=== PATIENT | male | born 1970 | race Caucasian/White ===

== ENCOUNTER 2022-05-19 08:06 | Outpatient (CLI) | payer OTHER, SELFPAY ==
--- NOTE | 2022-06-03 19:02 | WPDHOMESLEEP ---
Sleep Study - Home Unattended Date of Study: 05/19/22 Ordering Provider: Kranthi Golden PA-C Interpreting Provider: Reena Stovall, DO Home Sleep Study Type: Watch PAT Height: 1.83 m Weight: 90.718 kg Body Mass Index: 27.1 Neck Circumference (inches): 15.75 [place]: 4 Reason for Sleep Study Snoring, daytime hypersomnia Sleep History The patient is a 52-year-old male with hypertrophic cardiomyopathy, hyperlipidemia, GERD and history of tobacco use that had a sleep study ordered by his primary care for evaluation of sleep apnea. The patient frequently awakens from sleep short of breath. He denies awakening at night with heartburn, belching or cough. He constantly snores loud enough others complain. He occasionally has trouble sleeping when he has a cold. He frequently wakes up gasping for air throughout the night. He denies having breathing problems at night observed by himself or others. He denies sweating excessively at night. He rarely has heart palpitations or irregular heartbeats during the night. He occasionally falls asleep during the day but never while driving. He denies sleep paralysis, cataplexy and hypnagogic / hypnopompic hallucinations. He rarely has trouble at school or work due to sleepiness. He denies feeling afraid of going to sleep. He denies having nightmares. He frequently remembers his dreams. He rarely has thoughts racing through his mind. He denies feeling sad or depressed. He rarely has anxiety. He denies having muscular tension. He occasionally notices parts of his body jerk. He occasionally kicks during the night. He denies having crawling and aching feelings in his legs and denies having leg pain during the night. He rarely grinds his teeth during sleep but never awakens with morning jaw pain. He denies being bothered by pain during the day and denies being awakened by pain during the night. He denies waking up feeling stiff in the morning. He denies waking up with sore achy muscles. He denies waking up with pain in the neck, spine or other joints. He goes to bed at 10:30 p.m. on weekdays and at 11:30 p.m. on the weekends. He is able to fall asleep immediately. he wakes up 2-3 times throughout the night to urinate. He is able to fall back asleep within a few minutes. He wakes up at 6:30 a.m. on weekdays and 8:00 a.m. on the weekends. He typically gets 8 hours of sleep per night. He will stay in bed for few minutes after waking up in the morning. He currently lives with his and children. He does not consume any caffeinated beverages within 2 hours of bedtime. He does not engage in physical exercise before bedtime. he will watch television before falling asleep. He will take naps in the afternoon or the evening and they are refreshing. He drinks 16 oz of caffeinated beverage per day. He is a former smoker. [facility] Past Medical History Medical History (Updated 06/03/22 @ 19:11 by Reena Stovall DO) Other herpesviral infection Prostatitis, unspecified Family History Family History Mother Hypertension Cerebrovascular accident Family history of malignant neoplasm Colon polyp Father Family history of cardiovascular disease Colon polyp Other Malignant neoplasm of prostate Social History Social History Smoking status: Former smoker Alcohol intake: current Lack of Transportation: No Lack of Food: Never True Current Housing: I Have Housing Concerned About Future Housing: No Difficulty Paying Gas/Electric Bills: No Difficulty Paying for Meds: No Currently Unemployed: No Education: Decline to Answer Difficulty w/ Childcare or Family Care: No Medications Home Medications Medication Instructions Recorded Confirmed Type rosuvastatin 10 mg tablet 10 mg PO 04/25/22 04/25/22 History Sleep Procedure The sleep study
[2022-06-03 19:09] VITALS: BMI 27.1
== END 2022-05-20 10:07 | disposition home or self-care (01) ==
LOC: ANHCSM 08:07
PROVIDERS: PCP Family Medicine; Visit Provider Physician Assistant
DX: G47.30 Sleep apnea, unspecified (principal); G47.33 Obstructive sleep apnea (adult) (pediatric)
CPT/HCPCS: 95800

== ENCOUNTER 2023-01-06 03:45 | Day surgery (SDC) | payer OTHER, SELFPAY ==
[2022-12-24 14:18] VITALS: BMI 27.1
[2023-01-06 06:42] VITALS: BP 135/97; PULSE 76; RESP 18; TEMP 35.9; O2SAT 100; BMI 27.7
[2023-01-06] MEDS: LACTATED RINGERS 1,000 ML 150 ML IV CONT (07:01)
--- NOTE | 2023-01-06 07:20 | PM.HPGS ---
History of Present Illness History of Present Illness Consent: Risks, benefits, and alternatives have been discussed and questions answered. Patient agrees to proceed with procedure. Chief complaint: hx colon polyps Narrative: Yanick Ngo is a 52 year old male Presents for screening colonoscopy. Patient's current weight appetite and bowel movements are normal. Patient denies abdominal pain he has had no bleeding. Family history noncontributory . patient has previous history of adenomatous colon polyp in 2006. Patient currently has no symptoms. Presents today for surveillance screening colonoscopy. Review of Systems Review of Systems: Review of systems noncontributory. [facility] Past Medical History Medical History (Updated 11/18/22 @ 16:30 by Martha Rivera MD) Other herpesviral infection Prostatitis, unspecified Family History Family History Mother Hypertension Cerebrovascular accident Family history of malignant neoplasm Colon polyp Father Family history of cardiovascular disease Colon polyp Other Malignant neoplasm of prostate Social History Social History Smoking status: Former smoker Alcohol intake: current Drinks per week: 6 Substance use: never Substance use type: does not use Lack of Transportation: No Lack of Food: Never True Current Housing: I Have Housing Concerned About Future Housing: No Difficulty Paying Gas/Electric Bills: No Difficulty Paying for Meds: No Currently Unemployed: No Education: Decline to Answer Difficulty w/ Childcare or Family Care: No Living arrangements: with family Spiritual care concerns: No Meds Home Medications and Allergies Home Medications Medication Instructions Recorded Confirmed Type rosuvastatin 10 mg tablet 10 mg PO DAILY 04/25/22 01/06/23 History autopap #1 ea 07/11/22 01/06/23 Rx arginine (L-arginine) 500 mg 1,000 mg PO DAILY 12/24/22 01/06/23 History capsule aspirin 81 mg capsule 81 mg PO DAILY 12/24/22 01/06/23 History omeprazole 20 mg capsule,delayed 20 mg PO DAILY 12/24/22 01/06/23 History release spironolactone 25 mg tablet 25 mg PO DAILY 12/24/22 01/06/23 History Allergies Allergy/AdvReac Type Severity Reaction Status Date / Time No Known Allergies Allergy Verified 01/06/23 06:49 Vital Signs Vital Signs - 24 hr 01/06/23 06:42 Temperature 96.7 F L Pulse Rate 76 Respiratory Rate 18 Blood Pressure 135/97 H Pulse Oximetry 100 Oxygen Delivery Room Air Exam Narrative: Physical exam reveals patient to be alert. Vital signs stable. HEENT exam is unremarkable. Patient is anicteric. Lungs are clear to auscultation and percussion. Heart is without murmur or extra sounds. Abdomen bowel sounds are present soft nontender with no organomegaly. Digital external rectal exam is normal. Assessment and Plan Assessment and plan (1) Personal history of colonic polyps: Code(s): Z86.010 - Personal history of colonic polyps Status: Acute Assessment and Plan: Patient has a distant history of colon polyps. Most recent colonoscopy 2017 was unremarkable. Patient presents today for surveillance exam. Further recommendations may be given after endoscopy.
--- NOTE | 2023-01-06 07:46 | P.PNAN_ITS ---
Anes - Initial Pre Proc Eval Procedure: Operation Date: 01/06/23 08:00 Proposed Procedures p Colonoscopy - Yanick Bedolla MD Date/Time: 01/06/23 07:46 Surgeon: Yanick Bedolla MD Pre Op Diagnosis: hx colon polyps Patient Data Age: 52 Gender: M Height: 1.83 m Weight: 92.7 kg Last Vital Signs Temp 96.7 F L 01/06/23 06:42 Pulse 76 01/06/23 06:42 Resp 18 01/06/23 06:42 BP 135/97 H 01/06/23 06:42 Pulse Ox 100 01/06/23 06:42 O2 Del Method Room Air 01/06/23 06:42 Allergies Allergy/AdvReac Type Severity Reaction Status Date / Time No Known Allergies Allergy Verified 01/06/23 06:49 Home Medications Medication Instructions Recorded Confirmed Type rosuvastatin 10 mg tablet 10 mg PO DAILY 04/25/22 01/06/23 History autopap #1 ea 07/11/22 01/06/23 Rx arginine (L-arginine) 500 mg 1,000 mg PO DAILY 12/24/22 01/06/23 History capsule aspirin 81 mg capsule 81 mg PO DAILY 12/24/22 01/06/23 History omeprazole 20 mg capsule,delayed 20 mg PO DAILY 12/24/22 01/06/23 History release spironolactone 25 mg tablet 25 mg PO DAILY 12/24/22 01/06/23 History Patient hx anesthesia problems: none Family hx anesthesia problems: none Results Review: All pre-operative results and documents have been reviewed as part of the pre- operative evaluation. [facility], [facility] Past Medical History Medical History (Updated 11/18/22 @ 16:30 by Martha Rivera MD) Other herpesviral infection Prostatitis, unspecified Family History Family History Mother Hypertension Cerebrovascular accident Family history of malignant neoplasm Colon polyp Father Family history of cardiovascular disease Colon polyp Other Malignant neoplasm of prostate Social History Social History Smoking status: Former smoker Alcohol intake: current Drinks per week: 6 Substance use: never Substance use type: does not use Lack of Transportation: No Lack of Food: Never True Current Housing: I Have Housing Concerned About Future Housing: No Difficulty Paying Gas/Electric Bills: No Difficulty Paying for Meds: No Currently Unemployed: No Education: Decline to Answer Difficulty w/ Childcare or Family Care: No Living arrangements: with family Spiritual care concerns: No Anes - Eval Final PreProcedure Day of Procedure 01/06/23 07:46 Patient weight: normal Heart: regular rate and rhythm Lungs: clear to auscultation Airway: Mallampati scale class II Neurological: alert and oriented Last oral intake: >/= 8 hours ASA classification: III Emergent: no Anesthetic plan: proceed Anesthesia type and monitoring: general GIVS and standard monitoring Results Review: All pre-operative results and documents have been reviewed as part of the pre- operative evaluation. Informed Consent: The patient's anesthetic plan and its attendant risks and benefits were discussed with the patient/family/POA. Questions were solicited and answers provided to the satisfaction of the patient/family/POA.
[2023-01-06 08:12] VITALS: BP 109/73; PULSE 61; RESP 14; O2SAT 97
[2023-01-06 08:22] VITALS: BP 104/75; PULSE 61; RESP 17; O2SAT 98
[2023-01-06 08:32] VITALS: BP 126/82; PULSE 63; RESP 16; O2SAT 99
== END 2023-01-06 08:37 | disposition home or self-care (01) ==
PROVIDERS: PCP Family Medicine; Visit Provider Internal Medicine Gastroenterology
PROC: 0DJD8ZZ Inspection of Lower Intestinal Tract, Via Natural or Artificial Opening Endoscopic (ICD-10-PCS; CPT 45378; principal; 2023-01-06 08:00)
DX: Z12.11 Encounter for screening for malignant neoplasm of colon (principal); K64.8 Other hemorrhoids; K57.30 Diverticulosis of large intestine without perforation or abscess without bleeding; Z86.010 Personal history of colon polyps; Z87.891 Personal history of nicotine dependence
CPT/HCPCS: 45378; J2704; J7120